=== PATIENT | female | born 2005 | race African-American/Black ===

== ENCOUNTER 2025-03-03 22:13 | Emergency (ER) | payer OTHER, SELFPAY ==
[2025-03-03 22:21] VITALS: BP 109/72; PULSE 93; RESP 18; TEMP 36.7; O2SAT 99; BMI 22.8
--- NOTE | 2025-03-03 22:30 | ED.GENADULT ---
HPI - General Adult General Time Seen by Provider: 22:30 <Mara Murphy MD - Last Filed: 03/05/25 14:49> Date Seen: 03/03/25 <Mara Murphy MD - Last Filed: 03/05/25 14:49> Chief complaint: Constipation <Mara Murphy MD - Last Filed: 03/05/25 14:49> Stated complaint: constipated <Mara Murphy MD - Last Filed: 03/05/25 14:49> Time Seen by Provider: 03/03/25 22:23 <Mara Murphy MD - Last Filed: 03/05/25 14:49> Source: patient and RN notes reviewed <Mara Murphy MD - Last Filed: 03/05/25 14:49> Mode of arrival: ambulatory <Mara Murphy MD - Last Filed: 03/05/25 14:49> Limitations: no limitations <Mara Murphy MD - Last Filed: 03/05/25 14:49> History of Present Illness HPI narrative: This 19-year-old 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 She also has not been able to urinate for last 2 hours with his constipation. She does states she has a history of constipation. She tried a suppository around 6:00 p.m. tonight, constipation really started to bother her around 4:00 p.m.. Her last bowel movement was 3 days ago. She has suprapubic pressure tonight now that she cannot urinate but there was no abdominal pain. No nausea or vomiting. She has been taking some gfdn-sws-vaossav Robitussin for cough and cold symptoms. She does use her inhaler and Singulair. No nausea or vomiting, no fevers. She denies any chance for . <Mara Murphy MD - Last Filed: 03/05/25 14:49> Related Data Home medications: Home Medications ?Medication ?Instructions ?Recorded ?Confirmed budesonide-formoterol HFA 160 1 inh inhalation BID 03/03/25 03/03/25 mcg-4.5 mcg/actuation aerosol inhaler (Symbicort) montelukast 10 mg tablet 10 mg PO DAILY 03/03/25 03/03/25 (Singulair) Previous Rx's ?Medication ?Instructions ?Recorded docusate sodium 100 mg capsule 100 mg PO DAILY PRN Constipation 03/04/25 (Colace) prevention #30 caps polyethylene glycol 3350 17 17 g PO DAILY PRN constipation 03/04/25 gram/dose oral powder (Miralax) #238 grams sennosides 8.6 mg capsule (senna) 8.6 - 17.2 mg (1 - 2 x 8.6 mg) PO 03/04/25 DAILY PRN constipation #30 caps <Mara Murphy MD - Last Filed: 03/05/25 14:49> Allergies/adverse reactions: Allergies Allergy/AdvReac Type Severity Reaction Status Date / Time No Known Drug Allergies Allergy Verified 03/03/25 22:27 <Mara Murphy MD - Last Filed: 03/05/25 14:49> Review of Systems Status of ROS: Reports: 6 or more systems reviewed and unremarkable except as noted in History and below <Mara Murphy MD - Last Filed: 03/05/25 14:49> [facility] Social History: Social History Non-prescribed substance use: denies use <Mara Murphy MD - Last Filed: 03/05/25 14:49> Exam Const: Vital Signs, click to edit/add: Vital Signs - 24 hr 03/03/25 22:21 Temperature 98.1 F Pulse Rate [Pulse Oximeter] 93 Respiratory Rate 18 Blood Pressure [Ri ght Upper Arm] 109/72 Pulse Oximetry 99 Oxygen Delivery Me thod Room Air This 19-year-old female seen in exam room 1, she is originally sitting up leaning to the side on the bed. She is able to lie down. She is very pleasant, alert, interactive, no apparent distress. Sclera clear, symmetrical facial function. Lungs are clear come good air entry, no wheezing or crackles, no tachypnea. CV regular rate and rhythm, no murmur, normal S1-S2. Abdomen is soft, nondistended, mild suprapubic tenderness but no rebound or guarding. There is no organomegaly anywhere. I do hear bowel sounds. <Mara Murphy MD - Last Filed: 03/05/25 14:49> Vital Signs, click to edit/add: Vital Signs - 24 hr 03/03/25 22:21 Temperature 98.1 F Pulse Rate [Pulse Oximeter] 93 Respiratory Rate 18 Blood Pressure [Ri ght Upper Arm] 109/72 Pulse Oximetry 99 Oxygen Delivery Me thod Room Air <Yanet Gill MD - Last Filed: 03/04/25 01:48> Documenting provider has reviewed patient's vital signs: yes <Mara Murphy MD - Last Filed: 03/05/25 14:49> Course Course ED Course: Will obtain a flat and upright, insure no concerning bowel pattern. Patient understands that the cold medicine could conceivably be contributing to her constipation. Hopefully fully resolve her constipation, she will be able to urinate. We did discuss how this can happen with constipation. If there is any concerns on her abdominal imaging, may need to proceed with laboratory evaluation and CT imaging. <Mara Murphy MD - Last Filed: 03/05/25 14:49> Reevaluation(s) Time of Reevaluation #1: 23:03 <Mara Murphy MD - Last Filed: 03/05/25 14:49> Reevaluation #1: Have reviewed patient's imaging, see no obstructive pathology but significant stool burden. Have ordered an Enemeez. Did go to try to talk to her but she is in the restroom. <Mara Murphy MD - Last Filed: 03/05/25 14:49> Time of Reevaluation #2: 00:20 <Mara Murphy MD - Last Filed: 03/05/25 14:49> Reevaluation #2: Patient was able to urinate after the Enemeez. She had very small stool production but felt it was a little softer. She is still feeling rectal pressure and burning inside. Her anus is normal, no visible hemorrhoids or any bleeding. Digital rectal exam reveals some stool upwards at the end of my finger, does not feel excessively hard but this is too high to do any disimpaction. Will have her try an enema, have ordered Fleet's enema. Will have this patient sign-out over to oncoming colleague. <Mara Murphy MD - Last Filed: 03/05/25 14:49> Time of Reevaluation #3: 01:44 <Yanet Gill MD - Last Filed: 03/04/25 01:48> Reevaluation #3: dr. gill- patient tolerated the rectal docusate and the Fleet enema well, was able to hold in for quite a while. She did not have a large passage of stool. Counseled patient that I think we are going to need to approach this from a more systematic way. Will give 2 tablets of senna as a stimulant, 1st dose of MiraLax for osmotic assistance. Counseled patient that the docusate that she has used will take some time to soften the stool and I did not expect immediate results. The oral medications will take 4-6 hours to have effect. Because of this I would like for her to go home. She will be sent with an additional Fleet's enema kit. I would like for her to try to rest for the next 4 hours and then I would like for her to use the Fleet enema between 6 and 8:00 a.m. if she has not had a successful bowel movement. She was warned that unfortunately the senna will cause some cramping. But this regimen tends to be very effective. If she has not been successful, she should initiate our constipation management plan which was discussed with her. She will use this for future episodes as well. She will takes 2 senna tablets and a single dose of MiraLax. Repeating the MiraLax every 8 hours up to 5 additional doses if she has not had a successful bowel movement. Once she has a successful bowel movement, she should take Colace 1 pill 2-3 times per week to help maintain stool softness for a few weeks following an episode of constipation. Written instructions provided. She verbalizes understanding and agreement. <Yanet Gill MD - Last Filed: 03/04/25 01:48> Vital Signs Vital signs: Initial Vital Signs Temperature 98.1 F 03/03/25 22:21 Temperature Source Temporal Artery Scan 03/03/25 22:21 Pulse Rate 93 03/03/25 22:21 Respiratory Rate 18 03/03/25 22:21 Blood Pressure 109/72 03/03/25 22:21 Blood Pressure Mean 84 03/03/25 22:21 Blood Pressure Position Sitting 03/03/25 22:21 Pulse Oximetry 99 03/03/25 22:21 Oxygen Delivery Method Room Air 03/03/25 22:21 Vital Signs Temperature 98.1 F 03/03/25 22:21 Pulse Rate 93 03/03/25 22:21 Respiratory Rate 18 03/03/25 22:21 Blood Pressure 109/72 03/03/25 22:21 Pulse Oximetry 99 03/03/25 22:21 Oxygen Delivery Method Room Air 03/03/25 22:21 Temperature 98.1 F 03/03/25 22:21 Pulse Rate 93 03/03/25 22:21 Respiratory Rate 18 03/03/25 22:21 Blood Pressure 109/72 03/03/25 22:21 Pulse Oximetry 99 03/03/25 22:21 Oxygen Delivery Method Room Air 03/03/25 22:21 <Mara Murphy MD - Last Filed: 03/05/25 14:49> Initial Vital Signs Temperature 98.1 F 03/03/25 22:21 Temperature Source Temporal Artery Scan 03/03/25 22:21 Pulse Rate 93 03/03/25 22:21 Respiratory Rate 18 03/03/25 22:21 Blood Pressure 109/72 03/03/25 22:21 Blood Pressure Mean 84 03/03/25 22:21 Blood Pressure Position Sitting 03/03/25 22:21 Pulse Oximetry 99 03/03/25 22:21 Oxygen Delivery Method Room Air 03/03/25 22:21 Vital Signs Temperature 98.1 F 03/03/25 22:21 Pulse Rate 93 03/03/25 22:21 Respiratory Rate 18 03/03/25 22:21 Blood Pressure 109/72 03/03/25 22:21 Pulse Oximetry 99 03/03/25 22:21 Oxygen Delivery Method Room Air 03/03/25 22:21 Temperature 98.1 F 03/03/25 22:21 Pulse Rate 93 03/03/25 22:21 Respiratory Rate 18 03/03/25 22:21 Blood Pressure 109/72 03/03/25 22:21 Pulse Oximetry 99 03/03/25 22:21 Oxygen Delivery Method Room Air 03/03/25 22:21 <Yanet Gill MD - Last Filed: 03/04/25 01:48> Medications Administered Medications: Discontinued Medications Generic Name Dose Route Start Last Admin Trade Name Freq PRN Reason Stop Dose Admin Docusate Sodium/Benzocaine 5 ml 03/03/25 23:03 03/03/25 23:21 Docusate Sodium/Benzocaine 5 Ml Enema [place] 03/03/25 23:04 5 ml ONCE ONE Administration Polyethylene Glycol 17 gm 03/04/25 01:25 03/04/25 01:33 Polyethylene Glycol 3350 17 Gm Pack PO 03/04/25 01:26 17 gm ONCE ONE Administration Senna/Docusate Sodium 2 tab 03/04/25 01:25 03/04/25 01:33 Sennosides/Docusate Tablet PO 03/04/25 01:26 2 tab ONCE ONE Administration <Mara Murphy MD - Last Filed: 03/05/25 14:49> Discontinued Medications Generic Name Dose Route Start Last Admin Trade Name Freq PRN Reason Stop Dose Admin Docusate Sodium/Benzocaine 5 ml 03/03/25 23:03 03/03/25 23:21 Docusate Sodium/Benzocaine 5 Ml Enema [place] 03/03/25 23:04 5 ml ONCE ONE Administration Polyethylene Glycol 17 gm 03/04/25 01:25 03/04/25 01:33 Polyethylene Glycol 3350 17 Gm Pack PO 03/04/25 01:26 17 gm ONCE ONE Administration Senna/Docusate Sodium 2 tab 03/04/25 01:25 03/04/25 01:33 Sennosides/Docusate Tablet PO 03/04/25 01:26 2 tab ONCE ONE Administration <Yanet Gill MD - Last Filed: 03/04/25 01:48> Medical Decision Making Imaging Data Abdominal x-ray: Attestation: I have reviewed the pertinent imaging results. <Mara Murphy MD - Last Filed: 03/05/25 14:49> My impression: On my preliminary review did not appreciate any pattern of obstruction, there was significant stool burden. <Mara Murphy MD - Last Filed: 03/05/25 14:49> Radiologist's impression: Patient: BALTAZAR JONES Facility:?[facility] Patient ID:?[id number] Patient ID:?[id number]. Site :?[id number] Study:?XRay-Abdomen/Pelvis 2V-03/03/2025 11:04:03 PM Ordering Physician:Mone Terry Final Report: INDICATION: Constipation. COMPARISON: None. TECHNIQUE: Abdomen 2 view, 3 images. FINDINGS: Bowel: Nonobstructive bowel gas pattern. There is a large amount of gas and stool throughout the colon and rectum. Soft tissues: No sign of free air. No suspicious calcifications. The lung bases are clear. Bones: Mild left convex lumbar curve. IMPRESSION: 1. Nonobstructive bowel gas pattern. 2. Large stool burden. Dictated by Ryanne Dash MD @ 03/03/2025 11:31:24 PM (Electronic Signature) <Mara Murphy MD - Last Filed: 03/05/25 14:49> Discharge Plan Discharge Clinical Impression: Constipation <Mara Murphy MD - Last Filed: 03/05/25 14:49> Patient Disposition: Home, Self-Care <Mara Murphy MD - Last Filed: 03/05/25 14:49> Condition: Stable <Mara Murphy MD - Last Filed: 03/05/25 14:49> Instructions: Constipation (ED), High Fiber Diet (ED) <Mara Murphy MD - Last Filed: 03/05/25 14:49> Additional Instructions: As we discussed, the rectal medication will help soften and loosen that stool over the next few hours. You were also given a dose of senna which is a stimulant laxative. This will cause some cramping but helps the muscles of the got work to help push that constipation through. For most people, this kicks in in about 4-6 hours. I have also added a dose of MiraLax, an osmotic laxative that will help use the force of water and liquid in your stool to push the harder stool along. These will take a few hours to start working, therefore I would like for you to go home and try to rest. Between 6 and 8:00 a.m., I want you to do another dose of the Fleet's enema if your bowels have not successfully moved. Similar to here in the emergency room, you will insert the medication into the rectum, lie on your side and try to hold the medicine in for at least 5 minutes. When the urge to pass it becomes too strong, then try to have your bowel movement. Even if you do not pass a large amount of stool, the medication will coat it, continue to work on it and help things move along again within a few hours. If by 4:00 p.m., you have not noticed good bowel movement, take 2 of the senna tablets and a dose of the MiraLax again. Sent prescriptions for the senna and MiraLax to your pharmacy. If you get constipated again in the future, take 1-2 senna tablets and a dose of MiraLax. Then repeat the MiraLax every 8 hours, up to 5 doses until things pass nicely. Having an episode of constipation can be a bit jarring on the gut. Because of this, I would like for you to take a stool softener like Colace 2-3 times per week to help keep your stools moving softly for the next few weeks. I have sent a prescription for this also. <Mara Murphy MD - Last Filed: 03/05/25 14:49> Activity Level: No Restrictions <Mara Murphy MD - Last Filed: 03/05/25 14:49> No Restrictions <Yanet Gill MD - Last Filed: 03/04/25 01:48> Discharge Diet: Regular <Mara Murphy MD - Last Filed: 03/05/25 14:49> Regular <Yanet Gill MD - Last Filed: 03/04/25 01:48> Prescriptions: New senna 8.6 mg capsule 8.6 - 17.2 mg PO DAILY PRN (Reason: constipation) Qty: 30 1RF polyethylene glycol 3350 [Miralax] 17 gram/dose powder 17 g PO DAILY PRN (Reason: constipation) Qty: 238 1RF docusate sodium [Colace] 100 mg capsule 100 mg PO DAILY PRN (Reason: Constipation prevention) Qty: 30 1RF Rx Instructions: Use 2-3 times per week, up to once daily to help prevent constipation. No Action budesonide-formoterol [Symbicort] 160-4.5 mcg/actuation HFA aerosol inhaler 1 inh inhalation BID montelukast [Singulair] 10 mg tablet 10 mg PO DAILY <Mara Murphy MD - Last Filed: 03/05/25 14:49> Follow Up/Referrals: Provider,Not a Local [Primary Care Provider, Family Practice] <Mara Murphy MD - Last Filed: 03/05/25 14:49> Stand Alone Forms: [employer] Info Instructions <Mara Murphy MD - Last Filed: 03/05/25 14:49>
--- NOTE | 2025-03-03 22:45 | CRLHL7_ITS ---
For Patients: As a result of the Century Cures Act, medical imaging exams and procedure reports are released immediately into your electronic medical record. You may view this report before your referring provider. If you have questions, please contact your health care provider. INDICATION: Constipation. COMPARISON: None. TECHNIQUE: Abdomen 2 view, 3 images. FINDINGS: Bowel: Nonobstructive bowel gas pattern. There is a large amount of gas and stool throughout the colon and rectum. Soft tissues: No sign of free air. No suspicious calcifications. The lung bases are clear. Bones: Mild left convex lumbar curve. IMPRESSION: 1. Nonobstructive bowel gas pattern. 2. Large stool burden. Dictated by Ryanne Dash MD @ 03/03/2025 11:31:24 PM (Electronically Signed)
[2025-03-03] MEDS: DOCUSATE SODIUM/BENZOCAINE 5 ML ENEMA PR (23:21)
[2025-03-04] MEDS: SENNOSIDES/DOCUSATE TABLET 2 TAB PO (01:33)
== END 2025-03-04 01:48 | disposition home or self-care (01) ==
PROVIDERS: Emergency Provider Family Medicine
DX: K59.00 Constipation, unspecified (principal)
CPT/HCPCS: 74019; 99283; 99284; A9270